=== PATIENT | female | born 1975 | race American Indian/Alaskan Native ===

== ENCOUNTER 2016-11-09 10:34 | Emergency (ER) | payer SELFPAY ==
[2016-11-09 10:59] VITALS: BP 158/108
== END 2016-11-09 12:00 | disposition left against medical advice (07) ==
LOC: ED 10:34
DX: M79.1 Myalgia (principal); Z53.21 Procedure and treatment not carried out due to patient leaving prior to being seen by health care provider

== ENCOUNTER 2016-12-14 06:15 | Emergency (ER) | payer SELFPAY ==
[2016-12-14] MEDS ORDERED: MORPHINE IV ONE ×3 (06:46→11:35)
[2016-12-14] MEDS ORDERED: ZOFRAN IV ONE (06:46)
[2016-12-14 06:58] LABS: Hematocrit 37.6 % (30.3-42.9); Mean Corpuscular HGB Conc 32 % (30-34); Mean Corpuscular Volume 74 fl (79-97); Platelet Count 350 K/mm3 (140-440); Red Blood Count 5.06 M/mm3 (3.65-5.03); Red Cell Distribution Width 14.7 % (13.2-15.2); White Blood Count 8.2 K/mm3 (4.5-11.0)
[2016-12-14 07:02] LABS: Mean Corpuscular Hemoglobin 24 pg (28-32)
[2016-12-14 07:18] LABS: Anion Gap 23 mmol/L; Blood Urea Nitrogen 9 mg/dL (7-17); Carbon Dioxide 21 mmol/L (22-30); Chloride 96.8 mmol/L (98-107); Glucose 182 mg/dL (65-100); Sodium 137 mmol/L (137-145)
[2016-12-14 07:48] LABS: Blastocytes % (Manual) 0 %
[2016-12-14 07:51] LABS: Diff Status Complete; Hypochromasia 1+; Ovalocytes 1+; Poikilocytosis 1+
--- NOTE | 2016-12-14 07:56 | Emergency Department Report ---
HPI - General Chief Complaint: Skin/Abscess/Foreign Body Time Seen by Provider: 12/14/16 06:29 - HPI HPI: Chief complaint: Abscess HPI: Patient with a history of recurrent abscesses secondary to hidradenitis states she's had an abscess to her buttocks and under her left arm since September. Patient follows up at [facility] and she was going to have it drained but because of its size physician wanted to bring her in the hospital and have it drained. Patient tried to go to [facility] this morning that the botany teacher brought her here instead. Patient has been taking Percocet and clindamycin. Mode of arrival: [EMS] Source: [Patient] Began: September Duration: Continuous Context: See above Quality: Dull Severity: 10 out of 10 Improved with: Nothing Worsened with: Palpation Associated signs and symptoms: She is not sure she's had a fever but she denies nausea vomiting diarrhea cough or cold. ED Past Medical Hx - Past Medical History Previous Medical History?: Yes Additional medical history: Gout, Migraines, Sinus issues, Hidradenitis suppurativa - Surgical History Past Surgical History?: Yes Additional Surgical History: Sweat glands removed from buttock and right leg - Social History Smoking Status: Never Smoker Substance Use Type: None - Medications Home Medications: Home Medications Medication Instructions Recorded Confirmed Last Taken Type Clindamycin HCl 150 mg PO 4XD MDD take 3 capsules 12/14/16 12/14/16 Unknown History qid amLODIPine 10 mg PO DAILY 12/14/16 12/14/16 Unknown History oxyCODONE /ACETAMINOPHEN 5 - 325 mg PO PRN PRN 12/14/16 12/14/16 Unknown History ED Review of Systems ROS: Stated complaint: UNDERARM PAIN Other details as noted in HPI ROS Constitutional: No fever ENT: No uri symptoms Cardiovascular: No chest pain Respiratory: No sob or cough GI: No nausea vomiting or diarrhea : No dysuria frequency or urgency, Skin: See HPI Neuro: No focal weakness or numbness Psych: No depression Cresencio/lymph: No edema Physical Exam - Physical Exam Vital Signs: Vital Signs 12/14/16 12/14/16 06:24 06:34 Temperature 98.7 F Pulse Rate 88 Respiratory 20 20 Rate Blood Pressure 130/73 Blood Pressure 130/73 [Left] O2 Sat by Pulse 100 100 Oximetry Physical Exam: GENERAL: The patient is well-developed well-nourished . HEENT: Normocephalic. Atraumatic. Extraocular motions are intact. Patient has moist mucous membranes. NECK: Supple. No meningitic signs are noted. There is no adenopathy noted. CHEST/LUNGS: Clear to auscultation. There is no respiratory distress noted. HEART/CARDIOVASCULAR: Regular. There is no tachycardia. There is no gallop rub or murmur. ABDOMEN: Abdomen is soft, nontender. Patient has normal bowel sounds. There is no abdominal distention. SKIN: Patient with a large right buttocks abscess. Scarring under her left axilla and a 3 cm slightly fluctuant abscesses noted. There is no edema. There is no diaphoresis. NEURO: The patient is awake, alert, and oriented. The patient is cooperative. The patient has no focal neurologic deficits. The patient has normal speech. MUSCULOSKELETAL: There is no tenderness or deformity. There is no limitation range of motion. There is no evidence of acute injury. ED Course Vital Signs 12/14/16 12/14/16 06:24 06:34 Temperature 98.7 F Pulse Rate 88 Respiratory 20 20 Rate Blood Pressure 130/73 Blood Pressure 130/73 [Left] O2 Sat by Pulse 100 100 Oximetry - I & D Left Buttocks Type of Procedure: Simple Blade Size: 11 I & D Procedure: betadine prep Progress: Patient was given etomidate and then her fluctuant abscess to her left buttocks was I&D. No wick was placed. Serous fluid about 30 mL was extruded. Left Type of Procedure: Simple Blade Size: 11 I & D Procedure: betadine prep Progress: Left axilla abscess. I&D with purulent drainage about 5-10 mL. No packing was placed. - Moderate Sedation Indications: inciscion and drainage ASA Class: I Mallampati Airway Score: 1 Preparation: cable armorer applied, pulse oximeter, capnometry used, supplemental O2 applied, suction/airway equipment at bedside, IV secured IV Etomidate Dose (mgs): 10 Complications: none Patient Tolerated Procedure: well ED Medical Decision Making - Lab Data Result diagrams: 12/14/16 06:47 12/14/16 06:47 Laboratory Tests 12/14/16 12/14/16 06:47 06:47 Calcium 9.0 HCG, Qual Negative Critical care attestation.: If time is entered above; I have spent that time in minutes in the direct care of this critically ill patient, excluding procedure time. ED Disposition Clinical Impression: Hidradenitis, Abscess of axilla, left, Abscess of buttock, left Disposition: DISCHARGED TO HOME OR SELFCARE Is pt being admited?: No Does the pt Need Aspirin: No Condition: Stable Instructions: Abscess Incision and Drainage (ED), Sitz Bath (GEN) Additional Instructions: Warm wet compresses undoubtedly left arm 3 times a day for 20 minutes. Continue your Percocet and clindamycin. Referrals: PRIMARY CARE, [Primary Care Provider] - 3-5 Days [facility] [Outside] - 3-5 Days (Follow-up with your doctor at [facility]) Time of Disposition: 11:42
[2016-12-14] MEDS ORDERED: NACL ONE (08:02)
--- NOTE | 2016-12-14 08:39 | Cat Scan Report ---
CT PELVIS WITH CONTRAST History: Pelvic pain, pelvic abscess. Technique: Helical CT following IV contrast. Sagittal and coronal reformatted images. Findings: No comparison at this facility. No pelvic fluid collection or abscess is appreciated. No inflammatory changes. No adenopathy. The uterus is anteverted and appears normal size and contour. 1 cm subserosal fibroid in the anterior wall is suspected. The ovaries are within normal limits. Normal bladder. Visualized bowel loops are unremarkable. The appendix is normal. Normal bony pelvis. Impression: No acute process or abscess is detected. Small uterine fibroid.
[2016-12-14] MEDS ORDERED: MORPHINE ONE ×2 (11:10→11:20)
[2016-12-14] MEDS ORDERED: AMIDATE IV ONE ×2 (11:10→11:18)
[2016-12-14 12:37] VITALS: BP 130/75
== END 2016-12-14 13:00 | disposition home or self-care (01) ==
LOC: ED 06:15
DX: L02.31 Cutaneous abscess of buttock (principal); L02.412 Cutaneous abscess of left axilla; L73.2 Hidradenitis suppurativa; G43.909 Migraine, unspecified, not intractable, without status migrainosus
CPT/HCPCS: 10061; 36415; 72193; 80048; 84703; 85007; 85025; 96374; 96375; 96376; 99284; J2270; J2405; Q9967

== ENCOUNTER 2016-12-19 01:11 | Emergency (ER) | payer OTHER ==
[2016-12-19 02:00] LABS: Eosinophils % (Auto) 12.2 % (0.0-4.3); Hematocrit 39.2 % (30.3-42.9); Hemoglobin 12.7 gm/dl (10.1-14.3); Mean Corpuscular HGB Conc 32 % (30-34); Mean Corpuscular Volume 74 fl (79-97); Platelet Count 435 K/mm3 (140-440); Red Blood Count 5.32 M/mm3 (3.65-5.03); White Blood Count 8.9 K/mm3 (4.5-11.0)
[2016-12-19 02:02] LABS: Mean Corpuscular Hemoglobin 24 pg (28-32)
[2016-12-19 02:17] LABS: Anion Gap 18 mmol/L; BUN/Creatinine Ratio 17.14; Blood Urea Nitrogen 12 mg/dL (7-17); Calcium 9.2 mg/dL (8.4-10.2); Carbon Dioxide 27 mmol/L (22-30); Chloride 97.6 mmol/L (98-107); Glucose 177 mg/dL (65-100); Sodium 139 mmol/L (137-145)
[2016-12-19] MEDS ORDERED: DILAUDID IV ONE ×2 (10:21→14:38)
--- NOTE | 2016-12-19 10:33 | Emergency Department Report ---
- General Chief complaint: Skin/Abscess/Foreign Body Stated complaint: HIDRADNITIS Time Seen by Provider: 12/19/16 10:03 Source: patient, EMS Mode of arrival: Ambulatory Limitations: No Limitations - History of Present Illness Initial comments: 41-year-old female presents to the emergency department complaining of multiple abscesses. Patient reports a history of hidradenitis suppurativa being followed by [facility]. Patient is complaining of swelling and drainage from underneath her left arm, her buttocks, and her groin area. This is been ongoing for several days. She was seen 2 days ago in this emergency department for similar symptoms. At that time, she had an abscess drained in her left axilla and on her left buttock. Patient states last night at a separate area in her left axilla began to swell and become painful. She states that she use a warm compress which caused this area to drain. This morning the swelling and pain have returned. Patient states she has been on clindamycin and Percocet. The Percocet helps her pain for short amount of time for returns. She has no other complaints. MD complaint: abscess/boil -: Gradual, Last night Location: LUE, buttocks, genitals Severity: severe Quality: sharp Consistency: constant Improves with: none Worsens with: none Context: recent antibiotic Associated symptoms: denies other symptoms - Related Data Home Medications Medication Instructions Recorded Confirmed Last Taken Clindamycin HCl 150 mg PO 4XD MDD take 3 capsules 12/14/16 12/14/16 Unknown qid amLODIPine 10 mg PO DAILY 12/14/16 12/14/16 Unknown oxyCODONE /ACETAMINOPHEN 5 - 325 mg PO PRN PRN 12/14/16 12/14/16 Unknown Allergies Allergy/AdvReac Type Severity Reaction Status Date / Time ibuprofen Allergy Swelling Verified 11/09/16 10:58 tramadol Allergy Swelling Verified 11/09/16 10:58 Abscess Boil HPI - HPI Chief Complaint: Skin/Abscess/Foreign Body Stated Complaint: HIDRADNITIS Time Seen by Provider: 12/19/16 10:03 Home Medications: Home Medications Medication Instructions Recorded Confirmed Last Taken Clindamycin HCl 150 mg PO 4XD MDD take 3 capsules 12/14/16 12/14/16 Unknown qid amLODIPine 10 mg PO DAILY 12/14/16 12/14/16 Unknown oxyCODONE /ACETAMINOPHEN 5 - 325 mg PO PRN PRN 12/14/16 12/14/16 Unknown Allergies/Adverse Reactions: Allergies Allergy/AdvReac Type Severity Reaction Status Date / Time ibuprofen Allergy Swelling Verified 11/09/16 10:58 tramadol Allergy Swelling Verified 11/09/16 10:58 ED Review of Systems ROS: Stated complaint: HIDRADNITIS Other details as noted in HPI Comment: All other systems reviewed and negative Constitutional: denies: fever Skin: as per HPI ED Past Medical Hx - Past Medical History Previous Medical History?: Yes Hx Hypertension: Yes Hx Arthritis: Yes (gout) Hx Headaches / Migraines: Yes Additional medical history: Gout, Migraines, Sinus issues, Hidradenitis suppurativa - Surgical History Past Surgical History?: Yes Additional Surgical History: Sweat glands removed from buttock and right leg. fibroid tumors - Family History Family history: no significant - Social History Smoking Status: Never Smoker Substance Use Type: None - Medications Home Medications: Home Medications Medication Instructions Recorded Confirmed Last Taken Type Clindamycin HCl 150 mg PO 4XD MDD take 3 capsules 12/14/16 12/14/16 Unknown History qid amLODIPine 10 mg PO DAILY 12/14/16 12/14/16 Unknown History oxyCODONE /ACETAMINOPHEN 5 - 325 mg PO PRN PRN 12/14/16 12/14/16 Unknown History ED Physical Exam - General Limitations: No Limitations General appearance: alert, in distress (mild distress secondary to pain) - Head Head exam: Present: atraumatic, normocephalic - Eye Eye exam: Present: normal appearance, PERRL, EOMI - ENT ENT exam: Present: normal exam, normal orophraynx, mucous membranes moist - Neck Neck exam: Present: normal inspection, full ROM. Absent: tenderness - Respiratory Respiratory exam: Present: normal lung sounds bilaterally. Absent: respiratory distress - Cardiovascular Cardiovascular Exam: Present: regular rate, normal rhythm, normal heart sounds - GI/Abdominal GI/Abdominal exam: Present: soft, normal bowel sounds. Absent: distended, tenderness - Extremities Exam Extremities exam: Present: normal inspection, full ROM. Absent: tenderness - Back Exam Back exam: Present: normal inspection, full ROM. Absent: tenderness - Skin Skin exam: Present: warm, dry, other (multiple draining lesions noted in the bilateral inguinal region. No surrounding erythema. Drainage is serous in nature. There is also a draining lesion on the right buttock, without surrounding erythema. This drainage is purulent. The previous I&D site on the left buttock is unremarkable. The left axilla demonstrates multiple nodular irregularities. There is a healing I&D site. The superior aspect of axilla going into the upper arm there is a 6 cm area of edema and induration. There is moderate overlying erythema. Area is tender to touch with moderate fluctuance noted.) ED Course Vital Signs 12/19/16 12/19/16 12/19/16 01:15 08:13 14:00 Temperature 99.9 F H Pulse Rate 106 H 67 Pulse Rate [ 93 H Intra-Procedure ] Pulse Rate [ 82 Post-Procedure] Pulse Rate [Pre 62 -Procedure] Respiratory 22 18 Rate Respiratory 22 Rate [Intra- Procedure] Respiratory 15 Rate [Post- Procedure] Respiratory 14 Rate [Pre- Procedure] Blood Pressure 163/100 Blood Pressure 218/145 [Intra- Procedure] Blood Pressure 186/128 [Post-Procedure ] Blood Pressure 157/102 [Pre-Procedure] Blood Pressure 147/101 [Right] O2 Sat by Pulse 100 99 Oximetry O2 Sat by Pulse 100 Oximetry [Post -Procedure] O2 Sat by Pulse 100 Oximetry [Pre- Procedure] 12/19/16 12/19/16 15:45 16:00 Temperature Pulse Rate 63 64 Pulse Rate [ Intra-Procedure ] Pulse Rate [ Post-Procedure] Pulse Rate [Pre -Procedure] Respiratory 14 12 Rate Respiratory Rate [Intra- Procedure] Respiratory Rate [Post- Procedure] Respiratory Rate [Pre- Procedure] Blood Pressure Blood Pressure [Intra- Procedure] Blood Pressure [Post-Procedure ] Blood Pressure [Pre-Procedure] Blood Pressure 144/101 140/96 [Right] O2 Sat by Pulse 98 99 Oximetry O2 Sat by Pulse Oximetry [Post -Procedure] O2 Sat by Pulse Oximetry [Pre- Procedure] - I & D Left Shoulder Type of Procedure: Simple Site: left axilla Blade Size: 11 I & D Procedure: betadine prep, sterile drapes applied Progress: 1.5 cm incision made in the most lateral area of the abscess in the left axilla. Approximately 30 mL of hemorrhagic sinus purulent fluid is expressed. Sterile dressing is applied. No wick was placed. - Moderate Sedation Indications: inciscion and drainage ASA Class: II Mallampati Airway Score: 2 Preparation: surgical forceps fabricator applied, pulse oximeter, capnometry used, IV secured Ketamine: IV Ketamine Dose: 100 Complications: none Patient Tolerated Procedure: well Additional Comments: Total sedation time was 25 minutes. ED Medical Decision Making - Lab Data Result diagrams: 12/19/16 01:35 12/19/16 01:35 - Medical Decision Making Lab results reviewed and discussed with the patient. Abscess drained as documented procedure. Patient has recovered from her sedation and is emanating in the department without difficulty. Patient will be discharged home at this time to follow up with her surgeons at [facility]. - Differential Diagnosis hidradenitis suppurativa, abscess Critical care attestation.: If time is entered above; I have spent that time in minutes in the direct care of this critically ill patient, excluding procedure time. ED Disposition Clinical Impression: Hidradenitis, Abscess of axilla, left Disposition: DISCHARGED TO HOME OR SELFCARE Is pt being admited?: No Condition: Stable Instructions: Abscess (ED) Referrals: PRIMARY CARE, [Primary Care Provider] - 3-5 Days Time of Disposition: 17:05
[2016-12-19] MEDS ORDERED: KETALAR IV ONE ×2 (12:36→12:47)
[2016-12-19 16:20] VITALS: BP 140/96
== END 2016-12-19 17:35 | disposition home or self-care (01) ==
LOC: ED 01:11
DX: L73.2 Hidradenitis suppurativa (principal); L02.412 Cutaneous abscess of left axilla; I10 Essential (primary) hypertension; M19.90 Unspecified osteoarthritis, unspecified site; G43.909 Migraine, unspecified, not intractable, without status migrainosus; Z88.6 Allergy status to analgesic agent; Z88.8 Allergy status to other drugs, medicaments and biological substances
CPT/HCPCS: 10060; 36415; 80048; 82140; 85025; 87040; 96374; 96376; 99152; 99284; J1170